=== PATIENT | female | born 1995 | race Caucasian/White ===

== ENCOUNTER 2021-07-14 17:30 | Emergency (ER) | payer BC ==
[2021-07-14 19:15] LABS: RED BLOOD COUNT 4.98 M/UL (4.00-5.10); WHITE BLOOD COUNT 12.4 K/UL (4.5-11.0)
[2021-07-14 19:46] LABS: BUN/CREATININE RATIO 19 (0-10)
[2021-07-14] MEDS ORDERED: TORADOL 10 MG T10 MG PO (23:38)
[2021-07-14] MEDS ORDERED: DOXYCYCLINE HY100 M2 PO (23:38)
== END 2021-07-14 23:53 | disposition home or self-care (01) ==
LOC: ER1 17:30
PROVIDERS: Physician Assistant
DX: J18.9 Pneumonia, unspecified organism (principal); R07.89 Other chest pain; K21.9 Gastro-esophageal reflux disease without esophagitis; E03.9 Hypothyroidism, unspecified; Z20.822 Contact with and (suspected) exposure to COVID-19
CPT/HCPCS: 71045; 80053; 82550; 82553; 83874; 83880; 84484; 85025; 85379; 85610; 85730; 93005; 96374; 99285; J1885; Q9967; U0002